=== PATIENT | female | born 1955 | race African-American/Black ===

== ENCOUNTER 2016-11-08 21:36 | Emergency (ER) | payer SELFPAY ==
[~2016-11-08] VITALS: Ht 165.1 cm; Wt 81.8 kg
[2016-11-08] MEDS ORDERED: ETOMIDATE 2 MG/ML 10 ML VIAL IVP ONE (22:30)
[2016-11-08] MEDS ORDERED: FentaNYL CITRATE-PF 100 MCG/2 ML VIAL IVP ONE (22:30)
[2016-11-09 00:16] VITALS: BP 134/85
== END 2016-11-09 00:40 | disposition home or self-care (01) ==
LOC: EMS 21:38
DX: S43.005A Unspecified dislocation of left shoulder joint, initial encounter (principal); W01.0XXA Fall on same level from slipping, tripping and stumbling without subsequent striking against object, initial encounter; Y93.89 Activity, other specified; Y92.89 Other specified places as the place of occurrence of the external cause; Y99.8 Other external cause status
CPT/HCPCS: 23650; 73030; 99284; J3010; J3490; 29240

== ENCOUNTER 2016-11-14 11:47 | Emergency (ER) | payer SELFPAY ==
[~2016-11-14] VITALS: Ht 165.1 cm; Wt 81.8 kg
[2016-11-14] MEDS ORDERED: METO25 PO (11:54)
[2016-11-14] MEDS ORDERED: KETOROLAC TROMETHAMINE 60 MG/2 ML VIAL IM ONE (13:30)
[2016-11-14 14:38] VITALS: BP 142/74
== END 2016-11-14 14:43 | disposition home or self-care (01) ==
LOC: EMS 11:49
DX: Z76.0 Encounter for issue of repeat prescription (principal); M25.512 Pain in left shoulder; I10 Essential (primary) hypertension; F17.210 Nicotine dependence, cigarettes, uncomplicated
CPT/HCPCS: 96372; 99283; J1885